=== PATIENT | female | born 1970 | race Caucasian/White ===

== ENCOUNTER 2017-01-24 15:09 | Emergency (ER) | payer OTHER ==
[2017-01-24 15:46] VITALS: BP 166/98
[2017-01-24] MEDS ORDERED: NORMAL SALINE 1000 ML 1,000 ML IV PRN (16:28)
[2017-01-24] MEDS ORDERED: ONDANSETRON HCL INJ/PF 4 MG/2 ML SDV IV ONE (16:28)
--- NOTE | 2017-01-24 16:29 | ER Document Report ---
ED Medical Screen (RME) - General Chief Complaint: Abdominal Pain Stated Complaint: POSSIBLE ULCER Time Seen by Provider: 01/24/17 16:28 Notes: Patient presents with epigastric pain. She states she has had this for about a year but lately has gotten much worse. She does admit to daily alcohol consumption of approximately a 12 pack per day. She states she also takes 60 aspirin per day. Patient states she has had some loose stool but has not noticed any tarry stool. TRAVEL OUTSIDE OF THE [place] IN LAST 30 DAYS: No - Related Data Allergies/Adverse Reactions: No Known Allergies Allergy (Verified 06/15/15 14:58) Past Medical History - Social History Chew tobacco use (# tins/day): No Frequency of alcohol use: Heavy Drug Abuse: None - Past Medical History Cardiac Medical History: Reports: Hx Hypertension Renal/ Medical History: Denies: Hx Peritoneal Dialysis GI Medical History: Reports: Hx Gastritis Musculoskeltal Medical History: Reports Hx Musculoskeletal Deformity Psychiatric Medical History: Reports: Hx Anxiety, Hx Depression, Hx Post Traumatic Stress Disorder Past Surgical History: Reports: Hx Gynecologic Surgery - Breast Augmentation, Hx Orthopedic Surgery - Carpal Tunnel, Hx Tonsillectomy, Hx Tubal Ligation - Immunizations Hx Diphtheria, Pertussis, Tetanus Vaccination: No Physical Exam - Vital signs Vitals: Temp Pulse Resp BP Pulse Ox 98.4 F 109 H 18 166/98 H 95 01/24/17 15:44 01/24/17 15:44 01/24/17 15:44 01/24/17 15:44 01/24/17 15:44 Course - Vital Signs Vital signs: Temp Pulse Resp BP Pulse Ox 98.4 F 109 H 18 166/98 H 95 01/24/17 15:44 01/24/17 15:44 01/24/17 15:44 01/24/17 15:44 01/24/17 15:44
== END 2017-01-24 17:18 | disposition left against medical advice (07) ==
LOC: ER 15:09
DX: R10.13 Epigastric pain (principal); R19.4 Change in bowel habit; I10 Essential (primary) hypertension; Z79.82 Long term (current) use of aspirin; Z53.20 Procedure and treatment not carried out because of patient's decision for unspecified reasons
CPT/HCPCS: 99281

== ENCOUNTER 2017-02-15 15:19 | Observation (INO) | payer OTHER ==
[2017-02-15] MEDS ORDERED: NORMAL SALINE 500 ML IV ONE (19:03)
[2017-02-15] MEDS ORDERED: ONDANSETRON HCL INJ/PF 4 MG/2 ML SDV IV ONE ×2 (19:04→22:46)
--- NOTE | 2017-02-15 19:04 | ER Document Report ---
ED Medical Screen (RME) - General Mode of Arrival: Ambulatory Information source: Patient TRAVEL OUTSIDE OF THE [place] IN LAST 30 DAYS: No <CARRIE HENRY - Last Filed: 02/15/17 19:53> <ROSS BURR - Last Filed: 02/15/17 21:09> - General Chief Complaint: Abdominal Pain Stated Complaint: ABDOMINAL PAIN Time Seen by Provider: 02/15/17 19:01 Notes: Patient reports being sent here to rule out pancreatitis. Patient states she has never had pancreatitis in the past but she is an alcoholic. Patient states she drinks 2 large bottles of wine a day but stopped drinking for the last 2 weeks. Patient complains of upper abdominal pain with associated nausea and vomiting. (CARRIE HENRY) - Related Data Allergies/Adverse Reactions: No Known Allergies Allergy (Verified 02/15/17 15:23) Past Medical History - General Information source: [facility] Records - Past Medical History Cardiac Medical History: Reports: Hx Hypertension Renal/ Medical History: Denies: Hx Peritoneal Dialysis GI Medical History: Reports: Hx Gastritis Musculoskeltal Medical History: Reports Hx Musculoskeletal Deformity Psychiatric Medical History: Reports: Hx Anxiety, Hx Depression, Hx Post Traumatic Stress Disorder Past Surgical History: Reports: Hx Gynecologic Surgery - Breast Augmentation, Hx Orthopedic Surgery - Carpal Tunnel, Hx Tonsillectomy, Hx Tubal Ligation - Immunizations Hx Diphtheria, Pertussis, Tetanus Vaccination: No <CARRIE HENRY - Last Filed: 02/15/17 19:53> Review of Systems - Review of Systems Gastrointestinal: See HPI, Abdominal pain, Nausea, Vomiting <CARRIE HENRY - Last Filed: 02/15/17 19:53> Physical Exam <CARRIE HENRY - Last Filed: 02/15/17 19:53> <ROSS BURR - Last Filed: 02/15/17 21:09> - Vital signs Vitals: Temp Pulse Resp BP Pulse Ox 98.8 F 112 H 18 168/114 H 97 02/15/17 15:21 02/15/17 15:21 02/15/17 15:21 02/15/17 15:21 02/15/17 15:21 - Notes Notes: Physical Exam: General: Alert, appears well. HEENT: Normocephalic. Atraumatic. PERRLA. Extraocular movements intact. Oropharynx clear. Neck: Supple. Respiratory: No respiratory distress. Abdominal: Mild epigastric tenderness with palpation. No distension. Extremities: Moves all four extremities. Neurological: Cranial nerves II-XII grossly intact bilaterally. Normal cognition. AAOx4. Normal speech. Psychological: Normal affect. Normal Mood. Skin: Warm. Dry. Normal color. (CARRIE HENRY) Course - Laboratory Result Diagrams: 02/15/17 19:25 02/15/17 19:25 <ACRRIE HENRY - Last Filed: 02/15/17 19:53> - Laboratory Result Diagrams: 02/15/17 19:25 02/15/17 19:25 <ROSS BURR - Last Filed: 02/15/17 21:09> - Re-evaluation Re-evalutation: 02/15/17 21:09 I have greeted this patient and performed a rapid initial assessment. A comprehensive evaluation will be performed by another physician within the emergency department, including review of any tests I may have ordered. ( ROSS BURR) - Vital Signs Vital signs: Temp Pulse Resp BP Pulse Ox 98.8 F 112 H 18 168/114 H 97 02/15/17 15:21 02/15/17 15:21 02/15/17 15:21 02/15/17 15:21 02/15/17 15:21 - Laboratory Laboratory results interpreted by me: 02/15/17 02/15/17 02/15/17 19:25 19:25 19:25 MCV 101 H MCH 34.7 H RDW 15.1 H Monocytes % 15.3 H Sodium 136.7 L Chloride 95 L Creatinine 0.43 L Calcium 10.5 H Direct Bilirubin 0.6 H AST 121 H ALT 73 H Alkaline Phosphatase 159 H Total Protein 8.5 H Urine Protein 100 H Urine Ketones 20 H Urine Blood SMALL H Urine Nitrite POSITIVE H Ur Leukocyte Esterase LARGE H Scribe Documentation - Scribe Written by Ana:: Ana Hampton, 02/15/2017 195 acting as scribe for :: Arthur <CARRIE HENRY - Last Filed: 02/15/17 19:53>
[2017-02-15 19:37] LABS: ABSOLUTE MONOCYTES (AUTO) 0.7 10^3/uL (0.1-1.4); ABSOLUTE NEUT (AUTO) 2.7 10^3/uL (1.7-8.2); BASOPHILS % (AUTO) 0.5 % (0-2); HEMATOCRIT 39.7 % (36.0-47.0); HEMOGLOBIN 13.7 g/dL (12.0-15.5); HGB HCT DIFFERENCE 1.4; LYMPHOCYTES % (AUTO) 22.1 % (13-45); MEAN CORPUSCULAR HEMOGLOBIN 34.7 pg (27.0-33.4); MEAN CORPUSCULAR HGB CONC 34.6 g/dL (32.0-36.0); MEAN CORPUSCULAR VOLUME 101 fl (80-97); MONOCYTES % (AUTO) 15.3 % (3-13); RED BLOOD COUNT 3.95 10^6/uL (3.72-5.28); RED CELL DISTRIBUTION WIDTH 15.1 % (11.5-14.0); SEGMENTED NEUTROPHILS % (AUTO) 61.1 % (42-78); WHITE BLOOD COUNT 4.5 10^3/uL (4.0-10.5)
[2017-02-15 19:50] LABS: APPEARANCE,URINE CLOUDY; BILIRUBIN,URINE NEGATIVE (NEGATIVE); GLUCOSE, URINE NEGATIVE (NEGATIVE); KETONES,URINE 20 mg/dL (NEGATIVE); LEUKOCYTE ESTERASE,URINE LARGE (NEGATIVE); NITRITE,URINE POSITIVE (NEGATIVE); PROTEIN,URINE 100 mg/dL (NEGATIVE); URINE SPECIFIC GRAVITY 1.016; UROBILINOGEN,URINE NEGATIVE mg/dL (<2.0)
[2017-02-15 19:51] LABS: ALANINE AMINOTRANSFERASE 73 U/L (9-52); ALBUMIN 4.8 g/dL (3.5-5.0); ALKALINE PHOSPHATASE 159 U/L (38-126); ANION GAP 15 (5-19); ASPARTATE AMINO TRANSFERASE 121 U/L (14-36); BILIRUBIN,DIRECT 0.6 mg/dL (0.0-0.4); BLOOD UREA NITROGEN 9 mg/dL (7-20); CALCIUM 10.5 mg/dL (8.4-10.2); CARBON DIOXIDE 27 mmol/L (22-30); CHLORIDE 95 mmol/L (98-107); CREATININE RESULT 0.43 mg/dL (0.52-1.25); GLUCOSE 103 mg/dL (75-110); LIPASE 97.6 U/L (23-300); SODIUM 136.7 mmol/L (137-145); TOTAL PROTEIN 8.5 g/dL (6.3-8.2)
--- NOTE | 2017-02-15 22:00 | RADIOLOGY REPORT (SQ) ---
EXAM DESCRIPTION: CT ABD/PELVIS WITH IV ORAL COMPLETED DATE/TIME: 02/15/2017 9:36 pm REASON FOR STUDY: epigastric pain - evaluate pancreas COMPARISON: 01/27/2015 TECHNIQUE: CT scan of the abdomen and pelvis performed with intravenous and oral contrast using kait kaci scanning technique with dynamic intravenous contrast injection. Images reviewed with lung, soft t issue, and bone windows. Reconstructed coronal and sagittal MPR images reviewed. Delayed images for e valuation of the urinary system also acquired. All images stored on PACS. All CT scanners at this facility use dose modulation, iterative reconstruction, and/or weight based d osing when appropriate to reduce radiation dose to as low as reasonably achievable (ALARA). [facility]: Dose Right [facility]: CareDose [facility]: Dose Right [facility]: Teradose 4D [facility]: AppLovin CONTRAST TYPE AND DOSE: contrast/concentration: Isovue 370.00 mg/ml; Total Contrast Delivered: 45.0 ml; Total Saline Delivered: 65.0 ml RENAL FUNCTION: None required. The patient is less than 50 years old. RADIATION DOSE: Up-to-date CT equipment and radiation dose reduction techniques were employed. CTDIv ol: 4.8 mGy. DLP: 452 mGy-cm. . LIMITATIONS: None. FINDINGS: LOWER CHEST: No significant findings. No nodules or infiltrates. LIVER: Mild diffuse hepatic steatosis. No masses. No dilated ducts. SPLEEN: Normal size. No focal lesions. PANCREAS: No masses. No significant calcifications. No adjacent inflammation or peripancreatic fluid collections. Pancreatic duct not dilated. GALLBLADDER: No identified stones by CT criteria. No inflammatory changes to suggest cholecystitis. ADRENAL GLANDS: No significant masses or asymmetry. RIGHT KIDNEY AND URETER: No solid masses. No significant calcifications. No hydronephrosis or hyd roureter. LEFT KIDNEY AND URETER: No solid masses. No significant calcifications. No hydronephrosis or hydr oureter. AORTA AND VESSELS: No aneurysm. No dissection. Renal arteries, SMA, celiac without stenosis. RETROPERITONEUM: No retroperitoneal adenopathy, hemorrhage or masses. BOWEL AND PERITONEAL CAVITY: No obstruction. No visualized masses. No free fluid. No inflammatory ch anges or thickening of bowel wall. APPENDIX: Normal. PELVIS: No significant masses. Normal bladder. No free fluid. ABDOMINAL WALL: No masses. No hernias. BONES: No significant or acute findings. OTHER: No other significant finding. IMPRESSION: NO ACUTE FINDINGS WITHIN THE ABDOMEN OR PELVIS. HEPATIC STEATOSIS. TECHNICAL DOCUMENTATION: JOB ID: [id number] Quality ID # [id number]: Final reports with documentation of one or more dose reduction techniques (e.g., Au tomated exposure control, adjustment of the mA and/or kV according to patient size, use of iterative reconstruction technique) 2010 [employer]- All Rights Reserved
[2017-02-15] MEDS ORDERED: PROMETHAZINE HCL INJ 25 MG/1 ML VIAL IM ONE (22:25)
[2017-02-15] MEDS ORDERED: PANTOPRAZOLE SODIUM 40 MG VIAL IV ONE (22:25)
--- NOTE | 2017-02-15 23:49 | RADIOLOGY REPORT (SQ) ---
EXAM DESCRIPTION: U/S ABDOMEN LTD W/DOPPLER COMPLETED DATE/TIME: 02/15/2017 11:35 pm REASON FOR STUDY: upper abdominal pain, evaluate gallbladder COMPARISON: CT, same day. TECHNIQUE: Dynamic and static grayscale images acquired of the abdomen and recorded on PACS. Additio nal selected color Doppler and spectral images recorded. LIMITATIONS: None. FINDINGS: PANCREAS: No masses. Visualized pancreatic duct normal caliber. The LIVER: No masses. Moderate hepatic steatosis. LIVER VASCULATURE: Normal directional flow of the main portal vein and hepatic veins. GALLBLADDER: Small gallbladder sludge. Normal wall thickness. No pericholecystic fluid. ULTRASOUND-DETECTED HERNANDEZ'S SIGN: Negative. INTRAHEPATIC DUCTS AND COMMON DUCT: 1.0 cm diameter common duct. Intrahepatic ducts normal caliber. No filling defects. INFERIOR VENA CAVA: Normal flow. AORTA: No aneurysm. RIGHT KIDNEY: Normal size. Normal echogenicity. No solid or suspicious masses. No hydronephrosis. No calcifications. PERITONEAL AND RIGHT PLEURAL SPACE: No ascites or effusions. OTHER: No other significant findings. IMPRESSION: 1. Nonspecific 1.0 cm dilated common duct. No evidence of intrahepatic ductal dilation . 2. Small gallbladder sludge. Moderate hepatic steatosis. TECHNICAL DOCUMENTATION: JOB ID: [id number] [employer]- All Rights Reserved
[2017-02-16] MEDS ORDERED: CEFTRIAXONE INJ 1000 MG VIAL IV ONE (00:44)
--- NOTE | 2017-02-16 01:13 | ER Document Report ---
ED General - General Chief Complaint: Abdominal Pain Stated Complaint: ABDOMINAL PAIN Time Seen by Provider: 02/15/17 19:01 Mode of Arrival: Ambulatory Notes: Patient is a 46-year-old female presents with complaint of pain in the upper abdomen. She is a chronic alcoholic. She quit drinking 1 week ago because of the abdominal pain and vomiting. She has had no alcohol in 1 week. She denies any current withdrawal type symptoms. She has had a lot of vomiting. Some mild diarrhea. Pain is worse with eating. She has been taking aspirin for the pain. No fevers. No infections. No other complaints at this time. TRAVEL OUTSIDE OF THE [place] IN LAST 30 DAYS: No - Related Data Allergies/Adverse Reactions: No Known Allergies Allergy (Verified 02/15/17 15:23) Past Medical History - General Information source: [facility] Records - Social History Smoking Status: Current Every Day Smoker Chew tobacco use (# tins/day): No Frequency of alcohol use: Heavy Drug Abuse: None Family History: Arthritis, CAD, CVA, DM, Hyperlipidemia, Hypertension, Malignancy, Thyroid Disfunction Patient has suicidal ideation: No Patient has homicidal ideation: No - Past Medical History Cardiac Medical History: Reports: Hx Hypertension Renal/ Medical History: Denies: Hx Peritoneal Dialysis GI Medical History: Reports: Hx Gastritis Musculoskeltal Medical History: Reports Hx Musculoskeletal Deformity Psychiatric Medical History: Reports: Hx Anxiety, Hx Depression, Hx Post Traumatic Stress Disorder Past Surgical History: Reports: Hx Gynecologic Surgery - Breast Augmentation, Hx Orthopedic Surgery - Carpal Tunnel, Hx Tonsillectomy, Hx Tubal Ligation - Immunizations Hx Diphtheria, Pertussis, Tetanus Vaccination: No Review of Systems - Review of Systems Notes: My Normal Review Basic REVIEW OF SYSTEMS: CONSTITUTIONAL : Denies fever, chills, or sweats. Denies recent illness. EENT: Denies eye, ear, throat, or mouth pain or symptoms. Denies nasal or sinus congestion. CARDIOVASCULAR: Denies chest pain. RESPIRATORY: Denies cough, cold, or chest congestion. Denies shortness of breath, difficulty breathing, or wheezing. GASTROINTESTINAL: Upper abdominal pain and vomiting. GENITOURINARY: Denies difficulty urinating, painful urination, burning, frequency, or blood in urine. MUSCULOSKELETAL: Denies neck or back pain or joint pain or swelling. SKIN: Denies rash or skin lesions. NEUROLOGICAL: Denies altered mental status or loss of consciousness. Denies headache. Denies weakness or paralysis or loss of use of either side. Denies problems with gait or speech. Denies sensory or motor loss. ALL OTHER SYSTEMS REVIEWED AND NEGATIVE. Physical Exam - Vital signs Vitals: Temp Pulse Resp BP Pulse Ox 98.8 F 112 H 18 168/114 H 97 02/15/17 15:21 02/15/17 15:21 02/15/17 15:21 02/15/17 15:21 02/15/17 15:21 - Notes Notes: General Appearance: Well nourished, alert, cooperative, no acute distress, moderate obvious discomfort. Vitals: reviewed, See vital signs table. Head: no swelling or tenderness to the head Eyes: PERRL, EOMI, Conjuctiva clear Mouth: No decreasd moisture Throat: No tonsillar inflammation, No airway obstruction, No lymphadenopathy Lungs: No wheezing, No rales, No rhonci, No accessory muscle use, good air exchange bilaterally. Heart: Normal rate, Regular rythm, No murmur, no rub Abdomen: Normal BS, soft, No rigidity, moderate epigastric and right upper quadrant abdominal tenderness to palpation, No guarding, no rebound, no abdominal masses, no organomegaly Extremities: strength 5/5 in all extremities, good pulses in all extremities, no swelling or tenderness in the extremities, no edema. Skin: warm, dry, appropriate color, no rash Neuro: speech clear, oriented x 3, normal affect, responds appropriately to questions. Course - Re-evaluation Re-evalutation: 02/16/17 01:11 Patient's clinical presentation seems consistent with alcoholic gastritis however her ultrasound does show biliary sludge with dilated common bile duct. I did speak with Dr. Chowdhury, surgeon on-call, who agrees to admit the patient to obtain an MRCP in the morning. Patient is agreeable to this plan. - Vital Signs Vital signs: Temp Pulse Resp BP Pulse Ox 98.8 F 112 H 18 168/114 H 97 02/15/17 15:21 02/15/17 15:21 02/15/17 15:21 02/15/17 15:21 02/15/17 15:21 - Laboratory Result Diagrams: 02/15/17 19:25 02/15/17 19:25 Laboratory results interpreted by me: 02/15/17 02/15/1702/15/17 19:25 19:25 19:25 MCV 101 H MCH 34.7 H RDW 15.1 H Monocytes % 15.3 H Sodium 136.7 L Chloride 95 L Creatinine 0.43 L Calcium 10.5 H Direct Bilirubin 0.6 H AST 121 H ALT 73 H Alkaline Phosphatase 159 H Total Protein 8.5 H Urine Protein 100 H Urine Ketones 20 H Urine Blood SMALL H Urine Nitrite POSITIVE H Ur Leukocyte Esterase LARGE H Salicylates 02/15/17 19:25 MCV MCH RDW Monocytes % Sodium Chloride Creatinine Calcium Direct Bilirubin AST ALT Alkaline Phosphatase Total Protein Urine Protein Urine Ketones Urine Blood Urine Nitrite Ur Leukocyte Esterase Salicylates < 1.0 L Discharge - Discharge Clinical Impression: Abdominal pain Qualifiers: Abdominal location: upper abdomen, unspecified Qualified Code(s): R10.10 - Upper abdominal pain, unspecified Vomiting Qualifiers: Vomiting type: unspecified Vomiting Intractability: intractable Nausea presence : with nausea Qualified Code(s): R11.2 - Nausea with vomiting, unspecified UTI (urinary tract infection) Qualifiers: Urinary tract infection type: site unspecified Hematuria presence: without hematuria Qualified Code(s): N39.0 - Urinary tract infection, site not specified Condition: Stable Disposition: ADMITTED OBSERVATION Admitting Provider: Surgicalist Unit Admitted: Medical Floor Referrals: YOLIS ROSE MD [Primary Care Provider] - Follow up as needed
[2017-02-16] MEDS ORDERED: CEFTRIAXONE 1 GM/D5W RTU 1 GM/50 ML RTUPB IV ONE (01:29)
[2017-02-16] MEDS ORDERED: NORMAL SALINE 1000 ML 1,000 ML IV PRN (02:07)
--- NOTE | 2017-02-16 02:48 | HISTORY AND PHYSICAL E ---
History and Physical NAME: CEDRIC FLORES : 1970 AGE: 46Y ADMITTED: 02/16/2017 ROOM: ED41 CHIEF COMPLAINT: Abdominal pain. HISTORY OF PRESENT ILLNESS: This is a 46-year-old female who has been having nausea and vomiting and unable to eat for the past 1-2 weeks. She said she lost a lot of weight. There is also associated diarrhea. She tried to take aspirin, up to about 40 tablets a day, but no relief. She had an ultrasound in the ER which showed biliary sludge with a common bile duct dilated to about 1 cm. Her LFTs are slightly elevated and direct bilirubin. Lipase is normal. PAST HISTORY: History of breast implants and tubal ligation. SOCIAL HISTORY: Smokes a pack a day. Drinks daily for over a year, and her last drink was about a week ago. REVIEW OF SYSTEMS: Complaining of nausea, vomiting, and diarrhea as well as abdominal pains. Complaining also of cough and some chest pains. Denies dysuria. No visual or hearing problems. Admits to occasional chills. No definite fever. Each time she eats, she has epigastric and right upper quadrant pains radiating to the back. The rest of the systems are negative. FAMILY HISTORY: Father with history of diabetes. ALLERGIES: None known. PHYSICAL EXAMINATION: GENERAL: Well-developed, well-nourished, 46-year-old female, alert and quite anxious. Oriented x4. HEENT: Neck is supple. No thyromegaly. LUNGS: Clear. HEART: Regular sinus rhythm. ABDOMEN: Soft with tenderness in the epigastric and right upper quadrant. EXTREMITIES: No edema. IMPRESSION: 1. Cholelithiasis. 2. Slightly elevated liver function tests. PLANS: 1. Keep n.p.o. 2. Hydrate. 3. Repeat lab work in a.m. 4. May need laparoscopic cholecystectomy if with persistent pains and elevated enzymes. She will also need a possible intraoperative cholangiogram. DICTATING PHYSICIAN: DALY SHANKS M.D. [id number] PHY#: [id number] ID: [id number] JOB#: [id number] ACCT: [id number] cc: >
[2017-02-16] MEDS: ONDANSETRON HCL INJ/PF 4 MG/2 ML SDV IV PRN ×2 (03:30→18:04)
[2017-02-16] MEDS: HYDROMORPHONE HCL INJ/PF 2 MG/ML AMPULE IV PRN ×3 (03:32→15:42)
[2017-02-16] MEDS ORDERED: NICOTINE 21 MG/24 HR PATCH.TD24 TD PRN (10:00)
[2017-02-16 11:37] LABS: ALANINE AMINOTRANSFERASE 58 U/L (9-52); ALBUMIN 3.6 g/dL (3.5-5.0); ALKALINE PHOSPHATASE 106 U/L (38-126); ANION GAP 9 (5-19); ASPARTATE AMINO TRANSFERASE 84 U/L (14-36); BILIRUBIN,DIRECT 0.5 mg/dL (0.0-0.4); BLOOD UREA NITROGEN 6 mg/dL (7-20); CALCIUM 9.1 mg/dL (8.4-10.2); CARBON DIOXIDE 28 mmol/L (22-30); CHLORIDE 103 mmol/L (98-107); CREATININE RESULT 0.49 mg/dL (0.52-1.25); GLUCOSE 89 mg/dL (75-110); POTASSIUM 3.4 mmol/L (3.6-5.0); SODIUM 139.9 mmol/L (137-145); TOTAL PROTEIN 6.6 g/dL (6.3-8.2)
[2017-02-16] MEDS ORDERED: IPRATROPIUM/ALBUTEROL 0.5-2.5 MG/3 ML AMPUL NEB ONE (12:40)
[2017-02-16] MEDS ORDERED: MIDAZOLAM 2 MG/2 ML INJ ONE (12:44)
[2017-02-16] MEDS ORDERED: HYDROMORPHONE HCL INJ/PF 2 MG/ML AMPULE ONE (12:44)
[2017-02-16] MEDS ORDERED: FENTANYL CITRATE INJ/PF 100 MCG/2 ML AMPUL ONE ×2 (12:44)
[2017-02-16] MEDS ORDERED: PROPOFOL INJ 200 MG/20 ML VIAL IV ONE (12:45)
[2017-02-16] MEDS ORDERED: BUPIVACAINE HCL 0.25 % INJ/PF (2.5 MG/1 ML) 30 ML VIAL ONE (13:12)
[2017-02-16] MEDS ORDERED: MORPHINE SULFATE 10 MG/ML INJ IV PRN (13:49)
[2017-02-16] MEDS ORDERED: DIPHENHYDRAMINE HCL 50 MG/ML VIAL IV PRN (13:49)
[2017-02-16] MEDS ORDERED: FENTANYL CITRATE INJ/PF 100 MCG/2 ML AMPUL IV PRN ×3 (13:49)
[2017-02-16] MEDS ORDERED: PROMETHAZINE HCL INJ 25 MG/1 ML VIAL IV PRN (13:49)
[2017-02-16] MEDS ORDERED: LEVOFLOXACIN 500 MG/D5W RTU 500 MG/100 ML RTUPB IV ONE ×2 (14:35→15:00)
[2017-02-16] MEDS: HYDROCODONE/ACETAMINOPHEN 5-325 MG TABLET PO PRN (21:57)
[2017-02-17] MEDS: HYDROMORPHONE HCL INJ/PF 2 MG/ML AMPULE IV PRN (02:16)
[2017-02-17] MEDS: HYDROCODONE/ACETAMINOPHEN 5-325 MG TABLET PO PRN ×2 (08:21→14:40)
[2017-02-17] MEDS ORDERED: GLYCOPYRROLATE INJ 0.4 MG/2 ML VIAL ONE (14:27)
[2017-02-17] MEDS ORDERED: LIDOCAINE 2% INJ-PF (20 MG/ML) 10 ML AMPUL ONE (14:27)
[2017-02-17] MEDS ORDERED: DEXAMETHASONE SOD PHOSPHATE INJ 4 MG/1 ML VIAL ONE (14:27)
[2017-02-17] MEDS ORDERED: NEOSTIGMINE METHYLSULFATE 10 MG/10 ML VIAL ONE (14:27)
[2017-02-17] MEDS ORDERED: ONDANSETRON HCL INJ/PF 4 MG/2 ML SDV ONE (14:27)
[2017-02-17] MEDS ORDERED: ROCURONIUM BROMIDE INJ 50 MG/5 ML VIAL IV ONE (14:27)
[2017-02-17 15:39] VITALS: BP 138/95
--- NOTE | 2017-02-17 15:43 | DISCHARGE SUMMARY E ---
Discharge Summary NAME: CEDRIC FLORES : 1970 AGE: 46Y ADMITTED: 02/16/2017 DISCHARGED: 02/17/2017 ADMITTING DIAGNOSIS: Cholecystitis. DISCHARGE DIAGNOSIS: Cholecystitis suggestive of acute cholecystitis. OPERATIVE PROCEDURE: Laparoscopic cholecystectomy done on 02/16/2017. HOSPITAL COURSE: This morning she is feeling well, afebrile, tolerating diet well. All the trocar injuries are clean, healing very well. She is being discharged home with [facility] for the pain and stool softeners. She will follow in the Surgical Clinic in 1 week. DICTATING PHYSICIAN: ZHENG HERNANDEZ M.D. [id number] PHY#: [id number] ID: [id number] JOB#: [id number] ACCT: [id number] cc:ZHENG HERNANDEZ M.D. [facility],
--- NOTE | 2017-02-18 08:12 | OPERATIVE REPORT E ---
Operative Report NAME: CEDRIC FLORES : 1970 AGE: 46Y DATE OF SURGERY: 02/16/2017 ROOM: 208 PREOPERATIVE DIAGNOSIS: ACALCULOUS CHOLECYSTITIS. POSTOPERATIVE DIAGNOSIS: ACALCULOUS CHOLECYSTITIS WITH IMPACTED STONE IN THE NECK OF THE GALLBLADDER. OPERATION: Laparoscopic cholecystectomy. SURGEON: ZHENG HERNANDEZ M.D. ANESTHESIA: General. BLOOD LOSS: Less than 5 mL. SPECIMENS Gallbladder with the contents. HISTORY AND INDICATION: Patient was admitted with abdominal pain, acute cholecystitis. A laparoscopic cholecystectomy done because of the pain and acute presentation and acute cholecystitis. Explained about indication of operation, risks, benefits and complications, including but not limited to infection, bleeding, pain and possible postoperative common bile duct stones in the alcoholic issue, alcohol . After all was explained, she was taken to the operating room with informed consent. PROCEDURE: After induction of general anesthesia, supine position, SCDs boots. Patient was given appropriate antibiotics and antibiotics were continued. Abdomen was cleaned in a sterile field. Initially was cleaned supraumbilical area. Initially, infraumbilically a 12 mm trocar inserted. Under direct laparoscopic visualization, a 5 mm trocar in the epigastric area on the . Findings: Gallbladder inflamed, impacted stone in the gallbladder neck and gallbladder was dissected down, the cystic artery was dissected out from the cystic duct. It was divided with hemoclips and then and then the gallbladder neck was dissected circumferentially. Then the gallbladder was dissected down to a approach all the way to the gallbladder neck area. Note the cystic duct was securely carefully dissected down and then it was ligated by 2 applications of Endoloop PDS and then it was divided close to the gallbladder neck. It was retrieved by an EndoCatch bag. The abdominal cavity, subhepatic area copiously irrigated and suctioned out completely, thoroughly hemostatic. No leaks, no bleeding. Then all the trocars and pneumoperitoneum evacuated. Closure with 0 Vicryl over the fascia in 2 layers and 4-0 Monocryl for the skin. Patient did not encounter problems and was taken to the recovery room in stable condition. DICTATING PHYSICIAN: ZHENG HERNANDEZ M.D. [id number] Y#: [id number] ID: [id number] JOB#: [id number] ACCT: [id number] cc:ZHENG HERNANDEZ M.D. >
== END 2017-02-17 16:05 | disposition home or self-care (01) ==
LOC: ER 15:19 → EH 02-16 01:54 → 2N 02-16 04:13
PROVIDERS: ATTEND Colon & Rectal Surgery
PROC: 0FT44ZZ Resection of Gallbladder, Percutaneous Endoscopic Approach (ICD-10-PCS; principal; 2017-02-16 12:15)
DX: K81.1 Chronic cholecystitis (principal); F17.210 Nicotine dependence, cigarettes, uncomplicated; R05 Cough; R07.9 Chest pain, unspecified; F10.21 Alcohol dependence, in remission; N39.0 Urinary tract infection, site not specified; Z98.51 Tubal ligation status; Z80.9 Family history of malignant neoplasm, unspecified; Z87.19 Personal history of other diseases of the digestive system
CPT/HCPCS: 99285; 96375; 96365; 86900; 86901; 36415 ×2; 86850; 83690; 80307; 85025; 81025; 80053 ×2; 81001; 88304 ×2; 76705; 93976; 74177; 47562; J2250; J1956; J3490 ×2; J1100; J3010; J1170 ×2; S0164; J2405 ×3; J7030; J2704; J0696; J7620; 790; G0378

== ENCOUNTER 2018-09-18 19:41 | Emergency (ER) | payer OTHER | END 2018-09-18 20:13 | disposition left against medical advice (07) | LOC: ER 19:41 | DX: Z53.21 Procedure and treatment not carried out due to patient leaving prior to being seen by health care provider (principal) ==

== ENCOUNTER → 2019-08-19 | Outpatient (CLI) | payer OTHER ==
--- NOTE | 2019-08-19 09:19 | ER RDC ASSESSMENT REPORT ---
Intake - In the Last 14 days Have you traveled outside [place]?: No Have you been in close contact with someone CONFIRMED: No Worked in Healthcare?: No - Symptoms Subjective Fever(Raymond feverish): Yes --How many day(s)?: reports took tylenol this morning Chills: Yes Muscule Aches: Yes Runny Nose: Yes Sore Throat: No Cough (New or worsening chronic cough): Yes Shortness of breath: Yes Nausea or Vomiting: Yes --How many day(s)?: Vomitted only 1 time Headache: Yes Abdominal Pain: Yes Diarrhea(3 or more loose stools in last 24 hours): No - Do you have any of the following Chronic lung disease: Asthma or emphysema or COPD: No Cystic Fibrosis: No Diabetes: No High Blood Pressure: Yes Cardiovascular Disease: Yes Chronic Kidney Disease: No Chronic Liver Disease: No Chronic blood disorder like Sickle Cell Disease: No Weak immune system due to disease or medication: No Neurologic condition that limits movement: No Developmental delay - Moderate to Severe: No Recent (within past 2 weeks) or current : No Morbid Obesity (>100 pounds over ideal weight): No Obesity Comment: Height 5 feet 0 inches weight 103 pounds - Objective Temperature: 96.9 F Pulse Rate: 93 Respiratory Rate: 20 Blood Pressure: 188/107 O2 Sat by Pulse Oximetry: 99 Objective: Given above, testing performed: If Testing Performed: Test Specimen Type Sent to General - General Information source: Patient Notes: Here for COVID testing. States started feeling ill on August 16, with respiratory symptoms cough, chills, muscles aches and SOB. Reports has not experienced SOB in the past with cough and cold like symptoms. Is a known smoker 1/2 pack per day and HTN taking Atenolol. - Related Data Allergies/Adverse Reactions: No Known Allergies Allergy (Verified 02/15/17 15:23) Past Medical History - Social History Smoking Status: Current Every Day Smoker - smokes 1/2 pack per day. Family History: Arthritis, Malignancy, CAD, CVA, DM, Hyperlipidemia, Hypertension, Reviewed & Not Pertinent, Thyroid Disfunction - Past Medical History Cardiac Medical History: Reports: Hx Hypertension Pulmonary Medical History: Reports: Hx Pneumonia Renal/ Medical History: Denies: Hx Peritoneal Dialysis GI Medical History: Reports: Hx Gastritis Musculoskeletal Medical History: Reports Hx Musculoskeletal Deformity Psychiatric Medical History: Reports: Hx Anxiety, Hx Depression, Hx Post Traumatic Stress Disorder Past Surgical History: Reports: Hx Gynecologic Surgery - Breast Augmentation, Hx Orthopedic Surgery - Carpal Tunnel, Hx Tonsillectomy, Hx Tubal Ligation Physical Exam - General General appearance: Appears well, Alert In distress: None Notes: PHYSICAL EXAMINATION: GENERAL: Well-appearing and in no acute distress. HEAD: Atraumatic, normocephalic. EYES: sclera anicteric, conjunctiva are normal. ENT: nares patent. Moist mucous membranes. NECK: Normal range of motion, supple without lymphadenopathy LUNGS: CTAB and equal. No wheezes rales or rhonchi. lung sounds clear resp even and unlabored. with occasional dry non productive cough noted. HEART: Regular rate and rhythm without murmurs ABDOMEN: Soft, nontender, normal bowel sounds, no guarding. EXTREMITIES: No cyanosis. NEUROLOGICAL: Normal speech. Normal gait. PSYCH: Normal mood, normal affect. SKIN: Warm, Dry, normal turgor - Respiratory Respiratory status: No respiratory distress Breath sounds: Normal, Nonproductive cough Diagnostic Results Laboratory Results: Patient informed of negative rapid strep negative rapid flu results. Pending st rep culture. Pending COVID testing results. Instructions provided regarding COVID to include: As a person under investigation for Covid 19, the [place] department of Health and Human Services, division of public health advises you to adhere to the following guidance until your test results are reported to you. If your test result is positive, you will receive additional information from your provider and your local health department at that time. Remain at home until you are cleared by the health provider or public health authorities. Keep a log of visitors to your home, notify any visitors to your home of your isolation status. If you plan to move to a new address or leave the county, notify the local health department in your County. Call your doctor or seek care if you have an urgent medical need. Before seeking medical care, call ahead to get instructions from the provider before arriving at the medical office clinic or hospital. Notify them that you are being tested for the virus that causes Covid 19 so that arrangements can be made, as necessary, to prevent transmission to others in the healthcare setting. Next, notify the local health department in your county. If a medical emergency arises and you need to call 911, inform the first responders that you are being tested for the virus that causes Covid 19. Next, notify the local health department in your county. Patient Education/Counseling Counseling/Education: Patient presents with upper respiratory symptoms worrisome for possible Covid 19. Patient does not have emergency worring symptoms such as difficulty breathing, shortness of breath, chest pain, pressure, confusion or cyanosis. Patient appears suitable for discharge. Patient's vital signs are stable and patient is nontoxic in appearance. Patient instructed to take BP medication when home. Good return precautions have been discussed with patient, patient verbalized understanding and is agreeable with discharge plan of care at this time. RDC Discharge - Discharge Clinical Impression: COVID - 19 SCREENING Condition: Stable Disposition: Home; Selfcare
[2019-08-19 09:24] VITALS: BP 188/107
[2019-08-19 10:31] LABS: A TYPE INFLUENZA AG NEGATIVE (NEGATIVE); B INFLUENZA AG NEGATIVE (NEGATIVE)
== END ==
LOC: RDC 08:57
PROVIDERS: ATTEND Nurse Practitioner Family
DX: Z20.828 Contact with and (suspected) exposure to other viral communicable diseases (principal); R50.9 Fever, unspecified; R05 Cough; R06.02 Shortness of breath; R51 Headache; R11.10 Vomiting, unspecified; R10.9 Unspecified abdominal pain; M79.10 Myalgia, unspecified site; I10 Essential (primary) hypertension; F17.200 Nicotine dependence, unspecified, uncomplicated; Z87.01 Personal history of pneumonia (recurrent)
CPT/HCPCS: 87070; 87635; 87804; 87880; 99211